=== PATIENT | male | born 1950 | race Caucasian/White ===

== ENCOUNTER 2019-05-06 06:36 | Outpatient (CLI) | payer MEDICARE ==
[2019-05-06 13:33] LABS: #Eosinphils 0.2 thou/uL (0.0-0.7); #Monocytes 0.6 thou/uL (0.11-0.59); #Neutrophils 8.3 thou/uL (1.40-6.50); %Basophils 0.4 % (0.0-1.0); %Eosinophils 2.2 % (0.0-10.0); %Lymphocytes 17.7 % (21.0-51.0); %Monocytes 5.1 % (0.0-10.0); %Neutrophils 74.7 % (42.0-75.0); Hemoglobin 14.5 g/dL (14.0-18.0); Mean Corpuscular Hemoglobin 29.7 pg (27.0-31.0); Mean Corpuscular Volume 87.2 fL (78.0-98.0); Mean Platelet Volume 8.5 fL (7.4-10.4); Platelet Count 223 thou/uL (130-400); RBC Distribution Width 12.3 % (11.5-14.5); White Blood Cell (WBC) Count 11.1 thou/uL (4.8-10.8)
[2019-05-06 13:38] LABS: INR-International Normal Ratio 1.6; Prothrombin Time 18.5 SEC (12.0-14.7)
[2019-05-06 13:39] LABS: PTT 37.5 SEC (22.9-36.1)
[2019-05-06 14:01] LABS: Anion Gap 13 mmol/L (10-20); BUN (Urea Nitrogen) 17 mg/dL (8.4-25.7); Bacteria/HPF None Seen HPF (None Seen); Bilirubin Negative (Negative); Blood, Urine Negative (Negative); Calc. Creatinine Clearance 0 mL/min (70-130); Calcium 9.7 mg/dL (7.8-10.44); Carbon Dioxide 27 mmol/L (23-31); Chloride 99 mmol/L (98-107); Clarity Clear (Clear); Estimated GFR-MDRD 61; Glucose 106 mg/dL (80-115); Glucose, Urine (Dipstick) Normal (Negative); Leukocyte Negative Leu/uL (Negative); Nitrite Negative (Negative); Potassium 4.3 mmol/L (3.5-5.1); Protein, Urine (Dipstick) Negative (Neg-Trace); RBC/HPF 0-3 HPF (0-3); Sodium 135 mmol/L (136-145); Squamous Epithelial None Seen HPF (0-3); Urobilinogen Normal mg/dL (Less than 2); WBC/HPF 0-3 HPF (0-3)
== END 2019-05-06 06:37 | disposition home or self-care (01) ==
LOC: LABBT 06:36
PROVIDERS: ATTEND Orthopaedic Surgery
DX: Z01.818 Encounter for other preprocedural examination (principal); M17.11 Unilateral primary osteoarthritis, right knee
CPT/HCPCS: 80048; 81001; 85025; 85610; 85730; 87081; 93005; 93010

== ENCOUNTER 2019-05-17 06:49 | Day surgery (SDC) | payer MEDICARE ==
[2019-05-06 12:37] VITALS: BMI 42.5
[2019-05-17] MEDS ORDERED: Fentanyl 100 MCG/2 ML VIAL ONE ×4 (08:02→12:59)
[2019-05-17] MEDS ORDERED: Midazolam HCl 2 mg/2 ml Vial ONE (08:02)
[2019-05-17 08:22] LABS: PTT 28.9 SEC (22.9-36.1); Prothrombin Time 13.1 SEC (12.0-14.7)
[2019-05-17] MEDS ORDERED: traMADol HCl 50 MG TAB PO PRN ×3 (09:57→12:22)
[2019-05-17] MEDS ORDERED: Acetaminophen 325 MG TAB PO PRN (09:57)
[2019-05-17] MEDS ORDERED: diphenhydrAMINE 25 MG CAP PO PRN (09:57)
[2019-05-17] MEDS ORDERED: Fentanyl 100 MCG/2 ML VIAL SLOW IVP PRN (09:57)
[2019-05-17] MEDS ORDERED: Promethazine HCl 25 MG/ML VIAL IM PRN ×3 (09:57→12:22)
[2019-05-17] MEDS ORDERED: Ondansetron PF 4 MG/2 ML Vial IVP PRN (09:57)
[2019-05-17] MEDS ORDERED: HYDROcodone/Acetaminophen 10/325 mg Tablet PO PRN ×3 (09:57→12:22)
[2019-05-17] MEDS ORDERED: Zolpidem Tartrate 5 MG TAB PO PRN ×2 (09:57→12:22)
[2019-05-17] MEDS ORDERED: Vancomycin 1.5 GRAM/300 ML BAG 1.5 GM/300 ML BAG ONE (10:00)
[2019-05-17] MEDS ORDERED: Sodium Chloride 0.9% 10 ML ONE (10:03)
[2019-05-17] MEDS ORDERED: PROPOFOL 200 MG/20 ML VIAL ONE (10:12)
[2019-05-17] MEDS ORDERED: Ropivacaine 0.2% HCl/PF (40 MG/20 ML VIAL) ONE (10:12)
[2019-05-17] MEDS ORDERED: Bupivacaine HCl 0.5%/Epinephrine 1:200,000/PF 30 ml Vial ONE (10:12)
[2019-05-17] MEDS ORDERED: Lidocaine 1% PF 5 ML VIAL ONE (10:12)
[2019-05-17] MEDS ORDERED: Glycopyrrolate 0.2 MG/ML 5 ML SYRINGE ONE (10:12)
[2019-05-17] MEDS ORDERED: PHENYLEPHRINE-NS 100 MCG/ML 10 ML SYRINGE ONE (10:12)
[2019-05-17] MEDS ORDERED: Ondansetron PF 4 MG/2 ML Vial ONE (10:12)
[2019-05-17] MEDS ORDERED: EPHEDRINE 25 MG/5 ML SYRINGE ONE (10:12)
[2019-05-17] MEDS ORDERED: Dexamethasone 20 MG/5 ML VIAL ONE (10:12)
[2019-05-17] MEDS ORDERED: Tranexamic Acid 1,000 MG/10 ML VIAL ONE (10:17)
[2019-05-17] MEDS ORDERED: Sodium Chloride 0.9% 100 ML ONE (10:17)
[2019-05-17] MEDS ORDERED: Bupivacaine PF 0.5% 30 ML VIAL ONE (10:54)
[2019-05-17] MEDS ORDERED: Ondansetron HCl/PF 4 MG/2 ML Vial IVP PRN (12:04)
[2019-05-17] MEDS ORDERED: Promethazine HCl 25 MG/ML VIAL SLOW IVP PRN (12:04)
[2019-05-17] MEDS ORDERED: Ropivacaine HCl/PF 250 ML in Premix Bag 1 BAG NERVE BLCK SCH (12:22)
[2019-05-17] MEDS ORDERED: Fentanyl 100 MCG/2 ML VIAL IV PRN (12:23)
[2019-05-17] MEDS ORDERED: Ketorolac Tromethamine 30 MG/ML VIAL IVP SCH (14:00)
[2019-05-17] MEDS: HYDROcodone/Acetaminophen 10/325 mg Tablet PO PRN (15:44)
[2019-05-17] MEDS: CEFAZOLIN 2 GM in Premix Bag 1 BAG IVPB SCH (15:46)
[2019-05-17] MEDS: Sodium Chloride 0.9% 1,000 ML IV SCH ×2 (15:47→21:30)
[2019-05-17] MEDS: metFORMIN 500 MG TAB PO SCH (17:51)
[2019-05-17] MEDS: Ketorolac Tromethamine 30 MG/ML VIAL IVP SCH (17:52)
--- NOTE | 2019-05-17 18:16 | OP ---
DATE OF PROCEDURE: 05/17/2019 PREOPERATIVE DIAGNOSIS: Right knee osteoarthrosis. POSTOPERATIVE DIAGNOSIS: Right knee osteoarthrosis. PROCEDURE PERFORMED: Right total knee replacement using Fitly pinless navigation. SOLE LEATHER CUTTING MACHINE OPERATOR: Hawk Barriga PA-C ESTIMATED BLOOD LOSS: Minimal. COMPLICATIONS: None. ANESTHESIA: The patient did have a general anesthetic as well as preoperative block. IMPLANTS: Implants to the right knee include a Triathlon total knee system. The femur has a size 6 cruciate retaining right femur. We used a size 6 primary tibial baseplate, a 6 x 9 mm CS X3 tibial poly and a 32 x 10 X3 patella. DISPOSITION: He did go to recovery room in stable condition. INDICATIONS: This 68-year-old male comes in complaining of severe right knee pain that has not gone away with injections and at this time, he wished to have surgery. TOURNIQUET TIME: PROCEDURE IN DETAIL: After all appropriate consent forms were explained and signed, the patient was taken back to the operating room and at this time was given general anesthetic. Once the level of anesthesia was appropriate, a well-padded tourniquet was placed on the right leg, and the leg was then prepped and draped in standard surgical fashion. The limb was exsanguinated and tourniquet taken up to 300 mmHg. Midline incision was made with a 10 blade down through the skin and subcutaneous tissue. Bovie electrocautery was used to coagulate any brisk venous bleeding. A new blade was used to make a medial parapatellar arthrotomy. Small subperiosteal release was performed medially and excess fat pad was removed. The knee was flexed up to gain access to the femur. The femur was navigated and distal femoral resection was made. Epicondylar access was used to align our sizing jig and this was pinned in place. We sized our femur to be a size 6 cruciate retaining right femur. 4:1 cutting block was applied and pinned. Anterior and posterior chamfer cuts were then made. We navigated out our proximal tibia and made our proximal tibial resection. Spreaders were used to remove any posterior osteophytes off the back of the femur as well as remaining meniscal tissue. A long alignment madiha was then used to achieve correct rotation of our tibial baseplate and a size 6 primary tibial baseplate was chosen. This was pinned in place. We trialed the polyethylene and a 6 x 9 mm CS X3 tibial polyethylene gave us full extension and good stability throughout range of motion. Two towel clips and a saw were used to cut our patella. Three lug nuts were drilled and a 32 x 10 X3 patella was trialed which sat nicely in the trochlear groove. We then drilled our femur and punched our tibia. All components were removed. The knee was thoroughly irrigated and dried. Cement was mixed into the cement gun on the back table. Components were then placed. The knee was held out in full extension until the cement had dried. All excess bone cement was removed. Multiple #2 Vicryl stitches as well as a Quill were used to close our extensor mechanism. 0 Quill followed by a running Monoderm was then used to close the skin. Surgicel glue was then used on the skin. Once this had dried, soft tissue dressing was applied to the limb, tourniquet was let down, and the toes pinked up nicely. The patient was then awakened and taken to the recovery room in stable condition. All counts were correct at the end of the case. The patient did receive preoperative IV antibiotics. The patient was injected with Marcaine for postoperative pain relief. Job ID: [id number]
[2019-05-17] MEDS ORDERED: Dextrose 5% in Water 1,000 ML IV PRN (19:28)
[2019-05-17] MEDS ORDERED: HumaLOG 300 UNITS/3 ML VIAL SC PRN (19:28)
[2019-05-17] MEDS ORDERED: Dextrose 50% Abboject 50 ML SYRINGE SLOW IVP PRN (19:28)
--- NOTE | 2019-05-17 20:23 | PDOC.HHP ---
Hospitalist HPI - History of Present Illness Severe knee osteoarthritis, failed medical management History of Present Illness: 68-year-old gentleman with past medical history of diabetes mellitus, hypertension, hyperlipidemia, atrial fibrillation, and severe knee osteoarthritis presents for elective right total knee replacement. Patient was admitted to [facility] on 05/17/2019 for elective total knee replacement, please see for operative report for details. Patient tolerated the procedure well without intraoperative complications. I find the patient on the medical/surgical unit postoperatively. Patient is laying flat in bed, breathing comfortably on room air in no apparent distress. Patient's knee has a clean and dry dressing intact and he is not having hardly any pain. Patient states that is nerve block has been very effective for them. I discussed pain strategies for him after dinner block has worn off. I discussed the patient CPAP which he has available at bedside and told him it was okay for him to use his own CPAP machine at night. I had the patient demonstrate incentive spirometry use, he is pulling good title volumes of around 2500 mL which was excellent patient was able to sustain this for about 10 seconds. Time was given for questions, all answered in detail. Patient happy with plan of care. Hospitalist ROS - Review of Systems All other systems reviewed; all pertinent +/- noted in HPI/Subj - Medication Medications: Active Medications Generic Name Dose Route Start Last Admin Trade Name Freq PRN Reason Stop Dose Admin Hydrocodone Bitart/Acetaminophen 2 tab 05/17/19 12:22 05/17/19 15:44 [place] 10/325 PO 2 tab Q4H PRN Administration PAIN (4-6) Cefazolin Sodium/Dextrose 2 gm 50 mls @ 100 mls/hr 05/17/19 16:00 05/17/19 15 :46 / Device IVPB 05/18/19 00:28 50 mls [id number] INO Administration Sodium Chloride 1,000 mls @ 100 mls/hr 05/17/19 10:00 05/17/19 15:47 Normal Saline 0.9% IV 1,000 mls .Q10H INO Administration Ketorolac Tromethamine 15 mg 05/17/19 18:00 05/17/19 17:52 Toradol IVP 05/19/19 12:01 15 mg Q6HR INO Administration Metformin HCl 500 mg 05/17/19 17:00 05/17/19 17:51 Glucophage PO 500 mg BID-[facility] Administration Hospitalist History - Past Medical History Source: patient Cardiac: reports: AFIB, HTN, Hyperlipidemia Pulmonary: reports: Other ([place]) Musculoskeletal: reports: Osteoarthritis - Past Surgical History Past Surgical History: reports: Total Knee Replacement, Other - Family History Family History: reports: hypertension - Social History Smoking Status: Never smoker Alcohol: reports: None Drugs: reports: none Living Situation: With Family Domestic Violence: Negative Activity level: independent ambulation - Exam General Appearance: NAD, awake alert Eye: anicteric sclera ENT: normocephalic atraumatic, moist mucosa Neck: supple, symmetric, no lymphadenopathy Heart: no murmur, no gallops, no rubs, irregular Respiratory: CTAB, no wheezes, no rales, no ronchi, normal chest expansion, no tachypnea Gastrointestinal: soft, non-tender, no guarding, no rigidity Extremities: 1+ LE edema Skin: no lesions, no rashes Neurological: cranial nerve grossly intact, no focal deficits Musculoskeletal: normal tone, normal strength Psychiatric: normal affect, normal behavior, A&O x 3 Hospitalist H&P A/P - Problem (1) Knee pain Code(s): M25.569 - PAIN IN UNSPECIFIED KNEE Status: Acute (2) Postoperative pain of knee Code(s): G89.18 - OTHER ACUTE POSTPROCEDURAL PAIN; M25.569 - PAIN IN UNSPECIFIED KNEE Status: Acute (3) Ataxia Code(s): R27.0 - ATAXIA, UNSPECIFIED Status: Acute (4) Osteoarthritis Code(s): M19.90 - UNSPECIFIED OSTEOARTHRITIS, UNSPECIFIED SITE Status: Acute (5) Afib Code(s): I48.91 - UNSPECIFIED ATRIAL FIBRILLATION Status: Acute (6) DM (diabetes mellitus) Code(s): E11.9 - TYPE 2 DIABETES MELLITUS WITHOUT COMPLICATIONS Status: Acute (7) HTN (hypertension) Code(s): I10 - ESSENTIAL (PRIMARY) HYPERTENSION Status: Acute (8) HLD (hyperlipidemia) Code(s): E78.5 - HYPERLIPIDEMIA, UNSPECIFIED Status: Acute - Plan Plan: Plan: Admit to surgical unit Orthopedic surgery consultation, recommendations appreciated Postoperative care pain control physical therapy evaluation and treatment Occupational Therapy evaluation treatment continue home medications as able Continue home CPAP QHS Ok for patient to take his own Propafenone Restart anticoagulation if ok with surgery blood pressure control blood sugar control G.I. prophylaxis DVT prophylaxis
[2019-05-17] MEDS: Aspirin 81 mg Enteric Coated Tablet PO SCH (21:25)
[2019-05-17] MEDS: Rosuvastatin 20 MG TAB PO SCH (21:25)
[2019-05-17] MEDS: Lisinopril 20 MG TAB PO SCH (21:29)
[2019-05-18] MEDS: CEFAZOLIN 2 GM in Premix Bag 1 BAG IVPB SCH (00:20)
[2019-05-18] MEDS: Ketorolac Tromethamine 30 MG/ML VIAL IVP SCH ×5 (00:21→23:45)
[2019-05-18 05:14] LABS: Hemoglobin 12.2 g/dL (14.0-18.0); Mean Corpuscular HGB CONC 34.8 g/dL (32.0-36.0); Mean Corpuscular Hemoglobin 31.3 pg (27.0-31.0); Mean Corpuscular Volume 89.9 fL (78.0-98.0); Mean Platelet Volume 8.7 fL (7.4-10.4); Platelet Count 176 thou/uL (130-400); RBC Distribution Width 12.2 % (11.5-14.5); White Blood Cell (WBC) Count 11.6 thou/uL (4.8-10.8)
[2019-05-18] MEDS: Sodium Chloride 0.9% 1,000 ML IV SCH ×2 (06:28→16:09)
[2019-05-18] MEDS: HumaLOG 300 UNITS/3 ML VIAL SC PRN (06:29)
[2019-05-18] MEDS: Senokot S 8.6-50 MG TAB PO SCH ×2 (08:58→20:21)
[2019-05-18] MEDS: Ferrous Gluconate 324 MG TAB PO SCH ×2 (08:58→20:21)
[2019-05-18] MEDS: Multivitamin W/ Minerals 1 TAB PO SCH (08:58)
[2019-05-18] MEDS: metFORMIN 500 MG TAB PO SCH ×2 (08:58→16:26)
[2019-05-18] MEDS: Aspirin 81 mg Enteric Coated Tablet PO SCH ×2 (08:58→20:21)
[2019-05-18] MEDS: HYDROcodone/Acetaminophen 10/325 mg Tablet PO PRN ×3 (08:59→16:26)
[2019-05-18] MEDS: Spironolactone 25 MG TAB PO SCH (09:01)
[2019-05-18] MEDS: Chlorthalidone 25 MG TAB PO SCH (09:01)
[2019-05-18] MEDS: Lisinopril 20 MG TAB PO SCH ×2 (09:01→23:48)
[2019-05-18] MEDS: PROPAFENONE HCL 325 MG PO SCH ×2 (09:24→20:22)
[2019-05-18] MEDS: Ondansetron PF 4 MG/2 ML Vial IVP PRN ×2 (12:29→20:15)
--- NOTE | 2019-05-18 16:08 | PDOC.HOSPP ---
- Subjective Encounter Date: 05/18/19 Encounter Time: 14:40 Subjective: Pt seen for followup re: DM2. Feels well, no complaints. - Objective Vital Signs & Weight: Vital Signs (12 hours) Temp Pulse Resp BP BP Pulse Ox 05/18/19 15:30 98.1 F 56 L 16 166/66 H 94 L 05/18/19 10:26 98.0 F 59 L 16 121/47 L 96 05/18/19 07:58 98.1 F 48 L 16 122/56 L 96 05/18/19 04:45 98.1 F 51 L 18 112/68 98 Weight Admit Weight 314 lb Weight 314 lb I&O: 05/17/19 05/18/19 05/19/19 06:59 06:59 06:59 Intake Total 1787 Output Total 1150 Balance 637 Result Diagrams: 05/18/19 04:55 Additional Labs: Accuchecks 05/18/19 05/18/19 05/18/19 15:42 10:31 05:49 POC Glucose 143 H 154 H 166 H 05/18/19 05/17/19 00:21 15:54 POC Glucose 163 H 149 H Labs and MARs reviewed by ca Hospitalist ROS - Review of Systems Constitutional: reports: weakness Eyes: reports: pain Respiratory: reports: SOB with excertion Cardiovascular: reports: chest pain, palpitations Gastrointestinal: reports: nausea, vomiting Neurological: reports: weakness, numbness - Medication Medications: Active Medications Generic Name Dose Route Start Last Admin Trade Name Freq PRN Reason Stop Dose Admin Hydrocodone Bitart/Acetaminophen 1 tab 05/17/19 12:22 05/17/19 21:25 [place] 10/325 PO 1 tab Q4H PRN Administration Pain (1-3) Hydrocodone Bitart/Acetaminophen 2 tab 05/17/19 12:22 05/18/19 12:30 [place] 10/325 PO 2 tab Q4H PRN Administration PAIN (4-6) Aspirin 81 mg 05/17/19 21:00 05/18/19 08:58 Ecotrin PO 81 mg BID INO Administration Chlorthalidone 25 mg 05/18/19 09:00 05/18/19 09:01 Hygro[place] PO Not Given DAILY INO Ferrous Gluconate 324 mg 05/18/19 09:00 05/18/19 08:58 Fergon PO 324 mg BID INO Administration Sodium Chloride 1,000 mls @ 100 mls/hr 05/17/19 10:00 05/18/19 06:28 Normal Saline 0.9% IV Not Given .Q10H INO Ropivacaine 250 ml/ Device 250 mls @ 10 mls/hr 05/17/19 12:22 05/18/19 12:26 NERVE BLCK 05/20/19 12:21 250 mls INF INO Administration As Directed Insulin Human Lispro 0 units 05/17/19 19:28 05/18/19 06:29 Humalog SC 2 unit .MILD SLIDING SCALE PRN Administration Mild Correctional Scale Iron/Minerals/Multivitamins 1 tab 05/18/19 09:00 05/18/19 08:58 Theragran M PO 1 tab DAILY INO Administration Ketorolac Tromethamine 15 mg 05/17/19 18:00 05/18/19 12:23 Toradol IVP 05/19/19 12:01 15 mg Q6HR INO Administration Lisinopril 20 mg 05/17/19 21:00 05/18/19 09:01 Zestril PO Not Given BID INO Metformin HCl 500 mg 05/17/19 17:00 05/18/19 08:58 Glucophage PO 500 mg BID-WM INO Administration Ondansetron HCl 4 mg 05/17/19 12:22 05/18/19 12:29 Zofran IVP 4 mg Q6H PRN Administration Nausea/Vomiting Propafenone Hcl Er 0 each 05/18/19 09:00 05/18/19 09:24 325 Mg PO 1 each BID INO Administration Rosuvastatin Calcium 20 mg 05/17/19 21:00 05/17/19 21:25 Crestor PO 20 mg HS INO Administration Senna/Docusate Sodium 2 tab 05/18/19 09:00 05/18/19 08:58 Senokot S PO 2 tab BID INO Administration Spironolactone 25 mg 05/18/19 09:00 05/18/19 09:01 Aldactone PO 25 mg DAILY INO Administration - Exam General Appearance: awake alert Eye: anicteric sclera ENT: moist mucosa Neck: supple Heart: RRR Respiratory: CTAB Gastrointestinal: soft, non-tender Extremities - other findings: s/p R knee surgery Psychiatric: normal affect, normal behavior Hosp A/P - Plan - Problem (1) DM (diabetes mellitus) Code(s): E11.9 - TYPE 2 DIABETES MELLITUS WITHOUT COMPLICATIONS Status: Chronic (2) HTN (hypertension) Code(s): I10 - ESSENTIAL (PRIMARY) HYPERTENSION Status: Chronic (3) HLD (hyperlipidemia) Code(s): E78.5 - HYPERLIPIDEMIA, UNSPECIFIED Status: Chronic (4) Afib Code(s): I48.91 - UNSPECIFIED ATRIAL FIBRILLATION Status: Chronic - Plan Plan: HTN controlled. Continue statin. Physical therapy evaluation and treatment Occupational Therapy evaluation treatment Continue home CPAP QHS DVT prophylaxis and pain management per orthopedic surgery service.
[2019-05-18] MEDS: Rosuvastatin 20 MG TAB PO SCH (20:21)
[2019-05-19] MEDS: Sodium Chloride 0.9% 1,000 ML IV SCH ×3 (02:08→21:14)
[2019-05-19] MEDS: HYDROcodone/Acetaminophen 10/325 mg Tablet PO PRN ×2 (02:09→09:07)
[2019-05-19 05:12] LABS: Hemoglobin 10.8 g/dL (14.0-18.0); Mean Corpuscular HGB CONC 34.6 g/dL (32.0-36.0); Mean Corpuscular Hemoglobin 30.7 pg (27.0-31.0); Mean Corpuscular Volume 88.8 fL (78.0-98.0); Mean Platelet Volume 8.6 fL (7.4-10.4); Platelet Count 160 thou/uL (130-400); RBC Distribution Width 12.4 % (11.5-14.5); Red Blood Cell (RBC) Count 3.51 mill/uL (4.70-6.10); White Blood Cell (WBC) Count 8.3 thou/uL (4.8-10.8)
[2019-05-19] MEDS: Ketorolac Tromethamine 30 MG/ML VIAL IVP SCH ×2 (05:12→11:50)
[2019-05-19] MEDS: Ondansetron PF 4 MG/2 ML Vial IVP PRN (07:55)
[2019-05-19] MEDS: PROPAFENONE HCL 325 MG PO SCH ×2 (07:56→21:20)
[2019-05-19] MEDS: metFORMIN 500 MG TAB PO SCH ×2 (07:56→17:39)
[2019-05-19] MEDS: Aspirin 81 mg Enteric Coated Tablet PO SCH ×2 (09:03→21:11)
[2019-05-19] MEDS: Senokot S 8.6-50 MG TAB PO SCH ×2 (09:03→21:12)
[2019-05-19] MEDS: Multivitamin W/ Minerals 1 TAB PO SCH (09:04)
[2019-05-19] MEDS: Lisinopril 20 MG TAB PO SCH ×2 (09:04→23:50)
[2019-05-19] MEDS: Chlorthalidone 25 MG TAB PO SCH (09:04)
[2019-05-19] MEDS: Spironolactone 25 MG TAB PO SCH (09:04)
[2019-05-19] MEDS: Ferrous Gluconate 324 MG TAB PO SCH ×2 (09:05→21:12)
[2019-05-19] MEDS: Acetaminophen 500 MG TAB PO SCH ×3 (11:48→23:52)
[2019-05-19] MEDS ORDERED: traMADol HCl 50 MG TAB PO SCH ×3 (12:00)
[2019-05-19] MEDS: HumaLOG 300 UNITS/3 ML VIAL SC PRN (12:10)
--- NOTE | 2019-05-19 14:03 | PRG ---
DATE OF SERVICE: 05/19/2019 SUBJECTIVE: Estevan is a 68-year-old male, postop day 2 from a right total knee arthroplasty. He complains still some nausea and had one episode of vomiting this morning. We suspect he may have something to do with medications. Otherwise, he is ambulating 200 to 300 feet and quite stable, but otherwise pain is not his biggest issue, but it is the nausea that is bothering him the most. OBJECTIVE: VITAL SIGNS: Temperature 98.1, pulse 51, and blood pressure is 122/56. GENERAL: He is alert and oriented to person, place, time, situation, responsive, appropriate with examiner, nonfocal. His incision is clean without erythema. No strike through is noted. IMPRESSION: 1. A 68-year-old male postop day 1, right total knee arthroplasty. 2. Postoperative nausea with vomiting. PLAN: I think he may be best served to keep him overnight until the nausea fully clears as I am concerned about his stability. We will recheck the patient tomorrow and give consideration to discharge at that time. Job ID: [id number]
--- NOTE | 2019-05-19 14:12 | PRG ---
DATE OF SERVICE: 05/18/2019 SUBJECTIVE: Estevan is postop day 1 from a right total knee arthroplasty. His pain is controlled, but he has complained of some nausea since overnight stay. OBJECTIVE: VITAL SIGNS: Temperature is 98.1, pulse 51, blood pressure is 112/68, O2 saturations 98% on room air. GENERAL: He is alert and oriented to person, place, time, and situation. Responds appropriately with examiner. Grossly nonfocal. Incision is clean. No focal deficits. No strike through and he is neurovascularly intact in the right lower extremity. LABORATORY DATA: Hemoglobin and hematocrit are 12.2 and 35.1. IMPRESSION: 1. A 68-year-old male, postoperative day 1, right total knee arthroplasty. 2. Asymptomatic anemia. PLAN: Continue current care. We will try to resolve his nausea and give consideration to home discharge tomorrow. Job ID: [id number]
--- NOTE | 2019-05-19 15:56 | PDOC.HOSPP ---
- Subjective Encounter Date: 05/19/19 Encounter Time: 12:00 Subjective: Pt seen for followup re; DM2. c/o nausea. - Objective Vital Signs & Weight: Vital Signs (12 hours) Temp Pulse Resp BP BP BP Pulse Ox 05/19/19 15:06 98.1 F 64 18 131/70 97 05/19/19 12:00 98.0 F 60 18 145/70 H 95 05/19/19 09:04 135/77 05/19/19 08:00 98.1 F 60 16 135/77 95 05/19/19 04:00 98.2 F 52 L 16 108/66 96 Weight Admit Weight 314 lb Weight 314 lb I&O: 05/18/19 05/19/19 05/20/19 06:59 06:59 06:59 Intake Total 1787 2200 Output Total 1150 1500 Balance 637 700 Result Diagrams: 05/19/19 04:53 Additional Labs: Accuchecks 05/19/19 05/19/19 05/18/19 10:39 05:22 20:33 POC Glucose 191 H 151 H 169 H 05/18/19 15:42 POC Glucose 143 H Labs and MARs reviewed by pa Hospitalist ROS - Review of Systems Cardiovascular: reports: other. denies: chest pain, palpitations, orthopnea, paroxysmal noc. dyspnea, edema, light headedness Gastrointestinal: reports: nausea. denies: vomiting, abdominal pain, diarrhea, constipation, melena, hematochezia - Medication Medications: Active Medications Generic Name Dose Route Start Last Admin Trade Name Freq PRN Reason Stop Dose Admin Acetaminophen 1,000 mg 05/19/19 12:00 05/19/19 11:48 Tylenol PO 1,000 mg Q6HR INO Administration Aspirin 81 mg 05/17/19 21:00 05/19/19 09:03 Ecotrin PO 81 mg BID INO Administration Chlorthalidone 25 mg 05/18/19 09:00 05/19/19 09:04 [place] PO 25 mg DAILY INO Administration Ferrous Gluconate 324 mg 05/18/19 09:00 05/19/19 09:05 Fergon PO 324 mg BID INO Administration Sodium Chloride 1,000 mls @ 100 mls/hr 05/17/19 10:00 05/19/19 11:10 Normal Saline 0.9% IV Not Given .Q10H INO Ropivacaine 250 ml/ Device 250 mls @ 10 mls/hr 05/17/19 12:22 05/18/19 12:26 NERVE BLCK 05/20/19 12:21 250 mls INF INO Administration As Directed Insulin Human Lispro 0 units 05/17/19 19:28 05/19/19 12:10 Humalog SC 2 unit .MILD SLIDING SCALE PRN Administration Mild Correctional Scale Iron/Minerals/Multivitamins 1 tab 05/18/19 09:00 05/19/19 09:04 Theragran M PO 1 tab DAILY INO Administration Lisinopril 20 mg 05/17/19 21:00 05/19/19 09:04 Zestril PO 20 mg BID INO Administration Metformin HCl 500 mg 05/17/19 17:00 05/19/19 07:56 Glucophage PO 500 mg BID-WM INO Administration Ondansetron HCl 4 mg 05/17/19 12:22 05/19/19 07:55 Zofran IVP 4 mg Q6H PRN Administration Nausea/Vomiting Propafenone Hcl Er 0 each 05/18/19 09:00 05/19/19 07:56 325 Mg PO 1 each BID INO Administration Rosuvastatin Calcium 20 mg 05/17/19 21:00 05/18/19 20:21 Crestor PO 20 mg HS INO Administration Senna/Docusate Sodium 2 tab 05/18/19 09:00 05/19/19 09:03 Senokot S PO 2 tab BID INO Administration Spironolactone 25 mg 05/18/19 09:00 05/19/19 09:04 Aldactone PO 25 mg DAILY INO Administration - Exam General Appearance: awake alert Eye: anicteric sclera ENT: moist mucosa Neck: supple Heart: RRR Respiratory: CTAB Gastrointestinal: soft, non-tender Skin: no rashes Musculoskeletal - other findings: s/p right knee surgery Psychiatric: normal affect Hosp A/P - Plan - Problem (1) DM (diabetes mellitus) Code(s): E11.9 - TYPE 2 DIABETES MELLITUS WITHOUT COMPLICATIONS Status: Chronic (2) HTN (hypertension) Code(s): I10 - ESSENTIAL (PRIMARY) HYPERTENSION Status: Chronic (3) HLD (hyperlipidemia) Code(s): E78.5 - HYPERLIPIDEMIA, UNSPECIFIED Status: Chronic (4) Afib Code(s): I48.91 - UNSPECIFIED ATRIAL FIBRILLATION Status: Chronic - Plan Plan: PRN Zofran/phenergan for nausea. HTN controlled. Continue statin. DVT prophylaxis and pain management per orthopedic surgery service.
[2019-05-19] MEDS ORDERED: Rivaroxaban 10 MG TAB PO SCH (17:00)
[2019-05-19] MEDS: traMADol HCl 50 MG TAB PO SCH ×2 (18:32→23:52)
[2019-05-19] MEDS: Rosuvastatin 20 MG TAB PO SCH (21:12)
[2019-05-20 05:15] LABS: Hemoglobin 11.2 g/dL (14.0-18.0); Mean Corpuscular HGB CONC 32.8 g/dL (32.0-36.0); Mean Corpuscular Hemoglobin 28.9 pg (27.0-31.0); Mean Corpuscular Volume 88.1 fL (78.0-98.0); Mean Platelet Volume 8.7 fL (7.4-10.4); Platelet Count 185 thou/uL (130-400); RBC Distribution Width 12.3 % (11.5-14.5); Red Blood Cell (RBC) Count 3.86 mill/uL (4.70-6.10)
[2019-05-20] MEDS: Acetaminophen 500 MG TAB PO SCH ×2 (05:31→12:27)
[2019-05-20] MEDS: HumaLOG 300 UNITS/3 ML VIAL SC PRN (05:31)
[2019-05-20] MEDS: traMADol HCl 50 MG TAB PO SCH ×2 (05:31→12:26)
[2019-05-20] MEDS: metFORMIN 500 MG TAB PO SCH (08:07)
[2019-05-20] MEDS: Aspirin 81 mg Enteric Coated Tablet PO SCH (08:07)
[2019-05-20] MEDS: Spironolactone 25 MG TAB PO SCH (08:07)
[2019-05-20] MEDS: Multivitamin W/ Minerals 1 TAB PO SCH (08:07)
[2019-05-20] MEDS: Ferrous Gluconate 324 MG TAB PO SCH (08:07)
[2019-05-20] MEDS: Lisinopril 20 MG TAB PO SCH (08:07)
[2019-05-20] MEDS: Senokot S 8.6-50 MG TAB PO SCH (08:07)
[2019-05-20] MEDS: PROPAFENONE HCL 325 MG PO SCH (08:08)
[2019-05-20 08:09] VITALS: BP 142/80
[2019-05-20 11:00] VITALS: TEMP 97.7
== END 2019-05-20 12:46 | disposition home or self-care (01) ==
LOC: SDC 06:49 → SJJU 10:05 → SDC 05-20 12:46
PROVIDERS: ATTEND Orthopaedic Surgery
PROC: 0SRC0J9 Replacement of Right Knee Joint with Synthetic Substitute, Cemented, Open Approach (ICD-10-PCS; principal; 2019-05-17)
PROC: 8E0YXBZ Computer Assisted Procedure of Lower Extremity (ICD-10-PCS; 2019-05-17)
PROC: 3E0T3BZ Introduction of Anesthetic Agent into Peripheral Nerves and Plexi, Percutaneous Approach (ICD-10-PCS; 2019-05-17)
PROC: 3E0T3BZ Introduction of Anesthetic Agent into Peripheral Nerves and Plexi, Percutaneous Approach (ICD-10-PCS; 2019-05-17)
DX: M17.11 Unilateral primary osteoarthritis, right knee (principal); G89.18 Other acute postprocedural pain; E11.9 Type 2 diabetes mellitus without complications; I10 Essential (primary) hypertension; G47.33 Obstructive sleep apnea (adult) (pediatric); E78.5 Hyperlipidemia, unspecified; I48.20 Chronic atrial fibrillation, unspecified; D64.9 Anemia, unspecified; R27.0 Ataxia, unspecified; Z79.01 Long term (current) use of anticoagulants; Z79.84 Long term (current) use of oral hypoglycemic drugs; Z79.899 Other long term (current) drug therapy
CPT/HCPCS: 20985; 27447; 64445; 64448; 82565; 82962; 85027; 85610; 85730; 97110 ×2; 97116 ×4; 97139 ×3; 97150 ×3; 97530 ×2; 98961; C1713; C1776; 36415; 36416; J0670; J0690; J1100; J1885; J2001; J2250; J2405; J2704; J2795; J3010; J3370; J3490; J7050; S0020